=== PATIENT | male | born 1970 | race Hispanic/Latino ===

== ENCOUNTER 2020-07-31 21:25 | Observation (INO) | payer OTHER ==
--- NOTE | 2020-07-31 22:43 | Event Note ---
ED Screening Note Date of service: 07/31/20 Time: 22:42 ED Screening Note: Patient here from [place] on a 1013 complains of left-sided chest pain radiating down left arm This initial assessment/diagnostic orders/clinical plan/treatment(s) is/are subject to change based on patients health status, clinical progression and re- assessment by fellow clinical providers in the ED. Further treatment and workup at subsequent clinical providers discretion. Patient/guardian urged not to elope from the ED as their condition may be serious if not clinically assessed and managed. Initial orders include: Chest pain work-up
--- NOTE | 2020-07-31 23:08 | XRay Report ---
CHEST 2 VIEWS INDICATION: Chest pain and SOB. COMPARISON: 07/31/2020. FINDINGS: Support devices: None. Heart: Within normal limits. Lungs/Pleura: No acute air space or interstitial disease. No significant pleural effusion. IMPRESSION: No acute findings. Signer Name: Sudeep Rg MD Signed: 07/31/2020 11:04 PM Workstation Name: [id number]
[2020-07-31 23:32] LABS: Basophils # (Auto) 0.1 K/mm3 (0.0-0.1); Basophils % (Auto) 1.5 % (0.0-1.8); Eosinophils # (Auto) 0.3 K/mm3 (0.0-0.4); Eosinophils % (Auto) 2.9 % (0.0-4.3); Hematocrit 48.3 % (35.5-45.6); Hemoglobin 16.1 gm/dl (11.8-15.2); Lymphocytes # (Auto) 2.3 K/mm3 (1.2-5.4); Lymphocytes % (Auto) 23.8 % (13.4-35.0); Mean Corpuscular HGB Conc 33 % (32-34); Mean Corpuscular Volume 88 fl (84-94); Monocytes # (Auto) 1.1 K/mm3 (0.0-0.8); Monocytes % (Auto) 11.5 % (0.0-7.3); Platelet Count 323 K/mm3 (140-440); Red Blood Count 5.51 M/mm3 (3.65-5.03); Red Cell Distribution Width 14.3 % (13.2-15.2)
[2020-07-31 23:43] LABS: Alanine Aminotransferase 15 units/L (7-56); Albumin 4.3 g/dL (3.9-5); BUN/Creatinine Ratio 23; Blood Urea Nitrogen 25 mg/dL (9-20); Calcium 9.9 mg/dL (8.4-10.2); Hemolysis Index 19
[2020-08-01] MEDS ORDERED: fentaNYL 100 MCG/2 ML INJ IV ONE (03:14)
[2020-08-01] MEDS ORDERED: NITROGLYCERIN 2% OINT 1 GM TP ONE (03:14)
[2020-08-01] MEDS ORDERED: ONDANSETRON 4 MG/2 ML INJ IV ONE (03:14)
[2020-08-01] MEDS ORDERED: ASPIRIN 325 MG TAB PO ONE (03:14)
--- NOTE | 2020-08-01 03:23 | Emergency Department Report ---
HPI - General Chief Complaint: Chest Pain Time Seen by Provider: 07/31/20 22:42 - HPI HPI: Room 23 The patient is a 50-year-old male present with chief complaint of chest pain. Patient is currently at [place] but states this afternoon at 17: 00 he d eveloped substernal left-sided chest pain described as burning in nature. Patient states the pain was initially intermittent but is now constant. Patient admits to shortness of breath, nausea/vomiting and diaphoresis with this pain. Patient currently gets his chest pain a score of 8/10. Patient admits an occasional cough for the past 2 weeks. 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" - Surgical History Past Surgical History?: Yes Additional Surgical History: Hernia surgery - Family History Family history: no significant - Social History Smoking Status: Current Every Day Smoker (1/3 pack/day) Substance Use Type: Methamphetamines ED Review of Systems ROS: Stated complaint: CHEST PAIN Other details as noted in HPI Constitutional: diaphoresis Eyes: denies: eye pain ENT: denies: throat pain Respiratory: shortness of breath Cardiovascular: chest pain Endocrine: no symptoms reported Gastrointestinal: nausea, vomiting Genitourinary: denies: dysuria Musculoskeletal: denies: back pain Neurological: denies: headache Physical Exam - Physical Exam Vital Signs: Vital Signs 07/31/20 07/31/20 08/01/20 22:17 22:36 02:55 Temperature 97.7 F 98.1 F Pulse Rate 89 78 Respiratory 16 18 Rate Blood Pressure 134/112 Blood Pressure 126/103 118/70 [Right] O2 Sat by Pulse 100 100 Oximetry Physical Exam: GENERAL: The patient is well-developed well-nourished male lying on stretcher not appearing to be in acute distress. [] HEENT: Normocephalic. Atraumatic. Extraocular motions are intact. Patient has moist mucous membranes. NECK: Supple. Trachea midline CHEST/LUNGS: Clear to auscultation. There is no respiratory distress noted. HEART/CARDIOVASCULAR: Regular. There is no tachycardia. There is no gallop rub or murmur. ABDOMEN: Abdomen is soft, nontender. Patient has normal bowel sounds. There is no abdominal distention. SKIN: There is no rash. There is no edema. There is no diaphoresis. NEURO: The patient is awake, alert, and oriented. The patient is cooperative. The patient has no focal neurologic deficits. The patient has normal speech MUSCULOSKELETAL:There is no evidence of acute injury. ED Course Vital Signs 07/31/20 07/31/20 08/01/20 22:17 22:36 02:55 Temperature 97.7 F 98.1 F Pulse Rate 89 78 Respiratory 16 18 Rate Blood Pressure 134/112 Blood Pressure 126/103 118/70 [Right] O2 Sat by Pulse 100 100 Oximetry ED Medical Decision Making - Lab Data Result diagrams: 07/31/20 22:37 07/31/20 22:37 Laboratory Tests 07/31/20 07/31/20 08/01/20 22:37 22:37 01:32 WBC 9.5 RBC 5.51 H Hgb 16.1 H Hct 48.3 H MCV 88 MCH 29 MCHC 33 RDW 14.3 Plt Count 323 Lymph % (Auto) 23.8 [place] % (Auto) 11.5 H Eos % (Auto) 2.9 Baso % (Auto) 1.5 Lymph # (Auto) 2.3 [place] # (Auto) 1.1 H Eos # (Auto) 0.3 Baso # (Auto) 0.1 Seg Neutrophils % 60.3 Seg Neutrophils # 5.8 Sodium 138 Potassium 5.0 Chloride 98.6 Carbon Dioxide 32 H Anion Gap 12 BUN 25 H Creatinine 1.1 Estimated GFR > 60 BUN/Creatinine Ratio 23 Glucose 95 Calcium 9.9 Total Bilirubin 0.20 AST 20 ALT 15 Alkaline Phosphatase 98 Troponin T < 0.010 < 0.010 Total Protein 6.7 Albumin 4.3 Albumin/Globulin Ratio 1.8 - EKG Data -: EKG Interpreted by Me EKG shows normal: sinus rhythm Rate: normal - EKG Data When compared to previous EKG there are: previous EKG unavailable Interpretation: nonspecific ST-T wave dontae (T wave inversion lead aVL) - Radiology Data Radiology results: report reviewed (Chest x-ray), image reviewed (Chest x-ray) interpreted by me: Chest x-ray-no focal infiltrates, no pneumothorax. No foreign body seen [facility] [address] [place] [address] XR ay Report Signed Patient: QUANG DELAROSA MR#: [id number] : 1970 Acct:[id number] Age/Sex: 50 / M ADM Date: 07/31/20 Loc: ED Attending Dr: Ordering Physician: DON BRYSON MD Date of Service: 07/31/20 Procedure(s): XR chest routine 2V Accession Number(s): [id number] cc: DON BRYSON MD Fluoro Time In Minutes: CHEST 2 VIEWS INDICATION: Chest pain and SOB. COMPARISON: 07/31/2020. FINDINGS: Support devices: None. Heart: Within normal limits. Lungs/Pleura: No acute air space or interstitial disease. No significant pleural effusion. IMPRESSION: No acute findings. Signer Name: Sudeep Rg MD Signed: 07/31/2020 11:04 PM Workstation Name: [id number] Transcribed By: ES Dictated By: Sudeep Rg MD Electronically Authenticated By: Sudeep Rg MD Signed Date/Time: 07/31/202303 DD/ 02 TD/TT: Print Cancel - Differential Diagnosis ACS, pericarditis, GERD, bronchitis Critical care attestation.: If time is entered above; I have spent that time in minutes in the direct care of this critically ill patient, excluding procedure time. ED Disposition Clinical Impression: Chest pain Disposition: OP ADMIT IP TO THIS HOSP Is pt being admited?: Yes Does the pt Need Aspirin: Yes Condition: Fair Instructions: Nonspecific Chest Pain, Adult Referrals: PRIMARY CARE, [Primary Care Provider] - 3-5 Days Time of Disposition: 03:23 (Hospitalist paged (Dr Guerra)) Heart Score - HEART Score History: Moderately suspicious EKG: Non-specific Age: 45-65 Risk factors: > 3 risk factors or hx of atherosclerotic disease Troponin: < normal limit HEART Score: 5 - EKG Read Time Time EKG Completed: 22:23 EKG Read Time: 22:24
[2020-08-01] MEDS ORDERED: ONDANSETRON 4 MG/2 ML INJ IV PRN (03:54)
[2020-08-01] MEDS ORDERED: traMADol 50 MG TAB PO PRN (03:54)
[2020-08-01] MEDS ORDERED: NITROGLYCERIN 0.4 MG TAB SUBL SL PRN (03:54)
[2020-08-01] MEDS ORDERED: MAGNESIUM HYDROXIDE (MOM) ORAL LIQD UDC PO PRN (03:54)
[2020-08-01] MEDS ORDERED: ACETAMINOPHEN 325 MG TAB PO PRN ×2 (03:54)
--- NOTE | 2020-08-01 04:05 | History and Physical Report ---
History of Present Illness Date of examination: 08/01/20 Date of admission: 08/01/2020 Chief complaint: Chest Pain History of present illness: 50-year-old white male with known history of seizure disorder, CVA 6 months ago with left-sided deficit from [facility] presents to the emergency room today complaining of chest pain. Chest pain is said to be substernal and radiating to his the left side of his chest. Burning in nature and was initially intermittent and subsequently became constant . He denies any headache or dizziness, denies any diaphoresis. He denies any fever or chills, no cough. Patient had associated nausea and vomiting, no shortness of breath. Patient denies any sick contacts and denies any recent travel. He had COVID-19 in February 2020. He is currently at the [facility] at this time because of suicidal ideations. Work-up so far in the emergency room today including chest x-ray, EKG, troponin levels were negative. Patient has been admitted for chest pain evaluation. Past History Past Medical History: seizures, stroke (6months ago with left sided deficit), other (Covid-19 in 02/2020) Past Surgical History: hernia repair Social history: smoking (Current daily smoker), other (Uses Methamphetamine) Family history: no significant family history Medications and Allergies Allergies Allergy/AdvReac Type Severity Reaction Status Date / Time No Known Allergies Allergy Unverified 07/31/20 22:13 Active Meds: Active Medications Acetaminophen (Acetaminophen 325 Mg Tab) 650 mg PO Q4H PRN PRN Reason: Pain MILD(1-3)/Fever >100.5/WOLF Acetaminophen (Acetaminophen 325 Mg Tab) 650 mg PO Q6H PRN PRN Reason: Pain, Mild (1-3) Aspirin (Aspirin Ec 325 Mg Tab) 325 mg PO QDAY CHUCKY Heparin Sodium (Porcine) (Heparin 5,000 Unit/1 Ml Vial) 5,000 unit SUB-Q Q8HR CHUCKY Magnesium Hydroxide (Magnesium Hydroxide (Mom) Oral Liqd Udc) 30 ml PO Q4H PRN PRN Reason: Constipation Morphine Sulfate (Morphine 4 Mg/1 Ml Inj) 2 mg IV Q5MIN PRN PRN Reason: Chest Pain Nitroglycerin (Nitroglycerin 0.4 Mg Tab Subl) 0.4 mg SL Q5M PRN PRN Reason: Chest Pain Ondansetron HCl (Ondansetron 4 Mg/2 Ml Inj) 4 mg IV Q8H PRN PRN Reason: Nausea And Vomiting Sodium Chloride (Sodium Chloride 0.9% 10 Ml Flush Syringe) 10 ml IV BID CHUCKY Sodium Chloride (Sodium Chloride 0.9% 10 Ml Flush Syringe) 10 ml IV PRN PRN PRN Reason: LINE FLUSH Sodium Chloride (Sodium Chloride 0.9% 10 Ml Flush Syringe) 10 ml IV PRN PRN PRN Reason: LINE FLUSH Tramadol HCl (Tramadol 50 Mg Tab) 50 mg PO Q6H PRN PRN Reason: Pain, Moderate (4-6) Review of Systems Constitutional: no fever, no chills Ears, nose, mouth and throat: no nasal congestion, no sore throat Cardiovascular: chest pain, no palpitations Respiratory: shortness of breath, no cough Gastrointestinal: nausea, vomiting, no abdominal pain, no diarrhea Genitourinary Male: no dysuria, no hematuria, no flank pain, no urinary frequency, no nocturia Musculoskeletal: no neck pain, no low back pain Integumentary: no rash, no pruritis Neurological: no headaches, no confusion Psychiatric: suicidal ideation (Occasionally), depression, no anxiety Endocrine: no polyphagia, no polydipsia, no polyuria, no nocturia Exam - Constitutional Vitals: Temp Pulse Resp BP Pulse Ox 98.1 F 71 16 114/74 100 08/01/20 02:55 08/01/20 03:36 08/01/20 03:31 08/01/20 03:36 08/01/20 02:55 General appearance: Present: no acute distress, well-nourished - EENT Eyes: Present: PERRL, EOM intact, scleral icterus ENT: hearing intact, clear oral mucosa, dentition normal - Neck Neck: Present: supple, normal ROM - Respiratory Respiratory effort: normal Respiratory: bilateral: CTA - Cardiovascular Rhythm: regular Heart Sounds: Present: S1 & S2. Absent: gallop, systolic murmur, diastolic mu rmur, rub, click - Extremities Extremities: no ischemia, pulses intact, pulses symmetrical, No edema, normal temperature, normal color, Full ROM Peripheral Pulses: within normal limits - Abdominal General gastrointestinal: Present: soft, non-tender, non-distended, normal bowel sounds. Absent: mass - Integumentary Integumentary: Present: clear, warm, dry. Absent: rash - Musculoskeletal Musculoskeletal: strength equal bilaterally - Psychiatric Psychiatric: appropriate mood/affect, intact judgment & insight, memory intact, cooperative - Neurologic Neurologic: CNII-XII intact, no focal deficits, moves all extremities HEART Score - HEART Score History: Moderately suspicious EKG: Non-specific Age: 45-65 Risk factors: > 3 risk factors or hx of atherosclerotic disease Troponin: Troponin T < 0.010 ng/mL (0.00-0.029) 08/01/20 01:32 Troponin: < normal limit HEART Score: 5 Results - Labs CBC & Chem 7: 07/31/20 22:37 07/31/20 22:37 Labs: Abnormal lab results 07/31/20 07/31/20 Range/Units 22:37 22:37 RBC 5.51 H (3.65-5.03) M/mm3 Hgb 16.1 H (11.8-15.2) gm/dl Hct 48.3 H (35.5-45.6) % [place] % (Auto) 11.5 H (0.0-7.3) % [place] # (Auto) 1.1 H (0.0-0.8) K/mm3 Carbon Dioxide 32 H (22-30) mmol/L BUN 25 H (9-20) mg/dL Assessment and Plan - Patient Problems (1) Chest pain Current Visit: Yes Status: Acute Plan to address problem: Patient admitted to telemetry. We will check serial cardiac enzymes Patient placed on aspirin, sublingual nitroglycerin and IV morphine as needed for chest pain. We will place consult to cardiology for evaluation. (2) Seizure disorder Current Visit: Yes Status: Acute Plan to address problem: Patient placed on seizure precautions. We will place on routine home medications once reconciled. (3) Suicidal ideations Current Visit: Yes Status: Acute Plan to address problem: Patient has had intermittent suicidal ideations and currently at the [facility]. We will place consult to mental health for follow-up during this admission. (4) DVT prophylaxis Current Visit: Yes Status: Acute Plan to address problem: Patient placed on subcutaneous heparin. (5) Full code status Current Visit: Yes Status: Acute Plan to address problem: Patient is full code.
[2020-08-01 06:43] LABS: Basophils # (Auto) 0.2 K/mm3 (0.0-0.1); Basophils % (Auto) 2.1 % (0.0-1.8); Eosinophils # (Auto) 0.3 K/mm3 (0.0-0.4); Eosinophils % (Auto) 3.4 % (0.0-4.3); Hematocrit 44.6 % (35.5-45.6); Hemoglobin 14.8 gm/dl (11.8-15.2); Lymphocytes # (Auto) 2.2 K/mm3 (1.2-5.4); Lymphocytes % (Auto) 26.2 % (13.4-35.0); Mean Corpuscular HGB Conc 33 % (32-34); Mean Corpuscular Volume 88 fl (84-94); Monocytes # (Auto) 0.9 K/mm3 (0.0-0.8); Monocytes % (Auto) 10.8 % (0.0-7.3); Platelet Count 243 K/mm3 (140-440); Red Blood Count 5.06 M/mm3 (3.65-5.03); Red Cell Distribution Width 14.1 % (13.2-15.2)
[2020-08-01 07:38] LABS: BUN/Creatinine Ratio 24; Blood Urea Nitrogen 24 mg/dL (9-20); Calcium 9.2 mg/dL (8.4-10.2); Chol/HDL Ratio 2.67 %; HDL Cholesterol 52 mg/dL (40-59); Hemolysis Index 5; LDL Cholesterol,Direct 71 mg/dL (50-130)
[2020-08-01] MEDS: HEPARIN 5,000 UNIT/1 ML VIAL SUB-Q SCH ×3 (07:48→21:21)
[2020-08-01] MEDS: MORPHINE 4 MG/1 ML INJ IV PRN ×4 (09:12→23:15)
--- NOTE | 2020-08-01 11:27 | Progress Note ---
Assessment and Plan Assessment and plan: Assessment and Plan - Patient Problems Chest pain Current Visit: Yes Status: Acute Plan to address problem: Patient admitted to telemetry. Serial troponins Start aspirin, sublingual nitroglycerin and IV morphine as needed for chest pain. Cardiology consulted Stress test in the morning, patient n.p.o. after midnight Seizure disorder Current Visit: Yes Status: Acute Plan to address problem: Patient placed on seizure precautions. Patient denies any history of seizure disorder however this needs to be reconciled Suicidal ideations Current Visit: Yes Status: Acute Plan to address problem: Patient has had intermittent suicidal ideations and currently at the [facility]. Psychiatry consulted History of acute CVA? Unverified, patient states that he was admitted to the hospital in [place] for stroke Patient does not remember any medications he was placed on (statin, Plavix, aspirin?) CODE STATUS: Full DVT prophylaxis: Heparin Disposition: Stress test in the morning, if negative, patient to be discharged back to [facility]. History Interval history: 08/01/2020: Patient seen, no acute distress, states that he has mild left-sided chest pain not radiating to his neck or arm. Patient denies any suicidal ideation at this time. Hospitalist Physical - Constitutional Vitals: Temp Pulse Resp BP Pulse Ox 97.5 F L 70 17 111/77 96 08/01/20 08:16 08/01/20 04:49 08/01/20 04:49 08/01/20 08:16 08/01/20 04:49 General appearance: Present: no acute distress, well-nourished HEART Score - HEART Score EKG: Non-specific Age: 45-65 Risk factors: > 3 risk factors or hx of atherosclerotic disease Troponin: Troponin T < 0.010 ng/mL (0.00-0.029) 08/01/20 05:44 Troponin: < normal limit Results - Labs CBC & Chem 7: 08/01/20 05:44 08/01/20 05:44 Labs: Laboratory Last Values WBC 8.5 K/mm3 (4.5-11.0) 08/01/20 05:44 RBC 5.06 M/mm3 (3.65-5.03) H 08/01/20 05:44 Hgb 14.8 gm/dl (11.8-15.2) 08/01/20 05:44 Hct 44.6 % (35.5-45.6) 08/01/20 05:44 MCV 88 fl (84-94) 08/01/20 05:44 MCH 29 pg (28-32) 08/01/20 05:44 MCHC 33 % (32-34) 08/01/20 05:44 RDW 14.1 % (13.2-15.2) 08/01/20 05:44 Plt Count 243 K/mm3 (140-440) 08/01/20 05:44 Lymph % (Auto) 26.2 % (13.4-35.0) 08/01/20 05:44 [place] % (Auto) 10.8 % (0.0-7.3) H 08/01/20 05:44 Eos % (Auto) 3.4 % (0.0-4.3) 08/01/20 05:44 Baso % (Auto) 2.1 % (0.0-1.8) H 08/01/20 05:44 Lymph # (Auto) 2.2 K/mm3 (1.2-5.4) 08/01/20 05:44 [place] # (Auto) 0.9 K/mm3 (0.0-0.8) H 08/01/20 05:44 Eos # (Auto) 0.3 K/mm3 (0.0-0.4) 08/01/20 05:44 Baso # (Auto) 0.2 K/mm3 (0.0-0.1) H 08/01/20 05:44 Seg Neutrophils % 57.5 % (40.0-70.0) 08/01/20 05:44 Seg Neutrophils # 4.9 K/mm3 (1.8-7.7) 08/01/20 05:44 Sodium 135 mmol/L (137-145) L 08/01/20 05:44 Potassium 4.1 mmol/L (3.6-5.0) 08/01/20 05:44 Chloride 99.2 mmol/L (98-107) 08/01/20 05:44 Carbon Dioxide 28 mmol/L (22-30) 08/01/20 05:44 Anion Gap 12 mmol/L 08/01/20 05:44 BUN 24 mg/dL (9-20) H 08/01/20 05:44 Creatinine 1.0 mg/dL (0.8-1.3) 08/01/20 05:44 Estimated GFR > 60 ml/min 08/01/20 05:44 BUN/Creatinine Ratio 24 % 08/01/20 05:44 Glucose 86 mg/dL (75-100) 08/01/20 05:44 Calcium 9.2 mg/dL (8.4-10.2) 08/01/20 05:44 Total Bilirubin 0.20 mg/dL (0.1-1.2) 07/31/20 22:37 AST 20 units/L (5-40) 07/31/20 22:37 ALT 15 units/L (7-56) 07/31/20 22:37 Alkaline Phosphatase 98 units/L (35-129) 07/31/20 22:37 Troponin T < 0.010 ng/mL (0.00-0.029) 08/01/20 05:44 Total Protein 6.7 g/dL (6.3-8.2) 07/31/20 22:37 Albumin 4.3 g/dL (3.9-5) 07/31/20 22:37 Albumin/Globulin Ratio 1.8 % 07/31/20 22:37 Triglycerides 99 mg/dL (2-149) 08/01/20 05:44 Cholesterol 139 mg/dL (50-199) 08/01/20 05:44 LDL Cholesterol Direct 71 mg/dL (50-130) 08/01/20 05:44 HDL Cholesterol 52 mg/dL (40-59) 08/01/20 05:44 Cholesterol/HDL Ratio 2.67 % 08/01/20 05:44 [place]/IV: Voiding Method Toilet Active Medications - Current Medications Current Medications: Generic Name Dose Route Start Last Admin Trade Name Freq PRN Reason Stop Dose Admin Acetaminophen 650 mg 08/01/20 03:54 Acetaminophen 325 Mg Tab PO Q4H PRN Pain MILD(1-3)/Fever >100.5/WOLF Aspirin 325 mg 08/02/20 10:00 Aspirin Ec 325 Mg Tab PO QDAY CHUCKY Heparin Sodium (Porcine) 5,000 unit 08/01/20 06:00 08/01/20 07:48 Heparin 5,000 Unit/1 Ml Vial SUB-Q Not Given Q8HR CHUCKY Magnesium Hydroxide 30 ml 08/01/20 03:54 Magnesium Hydroxide (Mom) Oral Liqd Udc PO Q4H PRN Constipation Morphine Sulfate 2 mg 08/01/20 03:54 08/01/20 09:12 Morphine 4 Mg/1 Ml Inj IV 2 mg Q5MIN PRN Administration Chest Pain Nitroglycerin 0.4 mg 08/01/20 03:54 Nitroglycerin 0.4 Mg Tab Subl SL Q5M PRN Chest Pain Ondansetron HCl 4 mg 08/01/20 03:54 Ondansetron 4 Mg/2 Ml Inj IV Q8H PRN Nausea And Vomiting Sodium Chloride 10 ml 08/01/20 10:00 08/01/20 09:01 Sodium Chloride 0.9% 10 Ml Flush Syringe IV 10 ml BID CHUCKY Administration Sodium Chloride 10 ml 08/01/20 03:54 Sodium Chloride 0.9% 10 Ml Flush Syringe IV PRN PRN LINE FLUSH Tramadol HCl 50 mg 08/01/20 03:54 Tramadol 50 Mg Tab PO Q6H PRN Pain, Moderate (4-6)
--- NOTE | 2020-08-01 13:59 | Consultation ---
History of Present Illness Consult date: 08/01/20 Consult reason: chest pain History of present illness: Patient is a 50-year-old man currently a resident in [facility] for depression and suicidal ideation. He was brought to the emergency room for complaints of chest pain. Chest pain is poorly characterized, nonexertional with no anginal characteristics. ECG in the emergency room was normal sinus rhythm, normal ECG. Chest x-ray was normal size cardiac silhouette, hyperlucent lung post with no infiltrates or edema. Serial troponin levels were normal. Cardiology consultation was requested for chest pain assessment. Past History Past Medical History: seizures, stroke (6months ago with left sided deficit), other (Covid-19 in 02/2020) Past Surgical History: hernia repair Social history: smoking (Current daily smoker), other (Uses Methamphetamine) Family history: no significant family history Medications and Allergies Allergies Allergy/AdvReac Type Severity Reaction Status Date / Time No Known Allergies Allergy Verified 08/01/20 04:06 Active Meds: Active Medications Acetaminophen (Acetaminophen 325 Mg Tab) 650 mg PO Q4H PRN PRN Reason: Pain MILD(1-3)/Fever >100.5/WOLF Aspirin (Aspirin Ec 325 Mg Tab) 325 mg PO QDAY [facility] Heparin Sodium (Porcine) (Heparin 5,000 Unit/1 Ml Vial) 5,000 unit SUB-Q Q8HR [facility] Last Admin: 08/01/20 07:48 Dose: Not Given Documented by: Magnesium Hydroxide (Magnesium Hydroxide (Mom) Oral Liqd Udc) 30 ml PO Q4H PRN PRN Reason: Constipation Morphine Sulfate (Morphine 4 Mg/1 Ml Inj) 2 mg IV Q5MIN PRN PRN Reason: Chest Pain Last Admin: 08/01/20 09:12 Dose: 2 mg Documented by: Nitroglycerin (Nitroglycerin 0.4 Mg Tab Subl) 0.4 mg SL Q5M PRN PRN Reason: Chest Pain Ondansetron HCl (Ondansetron 4 Mg/2 Ml Inj) 4 mg IV Q8H PRN PRN Reason: Nausea And Vomiting Sodium Chloride (Sodium Chloride 0.9% 10 Ml Flush Syringe) 10 ml IV BID [facility] Last Admin: 08/01/20 09:01 Dose: 10 ml Documented by: Sodium Chloride (Sodium Chloride 0.9% 10 Ml Flush Syringe) 10 ml IV PRN PRN PRN Reason: LINE FLUSH Tramadol HCl (Tramadol 50 Mg Tab) 50 mg PO Q6H PRN PRN Reason: Pain, Moderate (4-6) Review of Systems Cardiovascular: chest pain, no orthopnea, no palpitations, no rapid/irregular heart beat, no edema, no syncope, no lightheadedness, no shortness of breath Physical Examination Vital Signs Temp Pulse Resp BP Pulse Ox 97.7 F 89 16 134/112 100 07/31/20 22:17 07/31/20 22:17 07/31/20 22:17 07/31/20 22:17 07/31/20 22:17 General appearance: no acute distress HEENT: Positive: PERRL Neck: Positive: neck supple Cardiac: Positive: Reg Rate and Rhythm Lungs: Positive: clear to auscultation Neuro: Positive: Grossly Intact Abdomen: Positive: Soft Male genitourinary: Positive: deferred Skin: Positive: Clear Extremities: Absent: edema Results 08/01/20 05:44 08/01/20 05:44 Cardiac Enzymes 07/31/20 Range/Units 22:37 AST 20 (5-40) units/L Lipids 08/01/20 Range/Units 05:44 Triglycerides 99 (2-149) mg/dL Cholesterol 139 (50-199) mg/dL HDL Cholesterol 52 (40-59) mg/dL Cholesterol/HDL Ratio 2.67 % CBC 07/31/20 08/01/20 Range/Units 22:37 05:44 WBC 9.5 8.5 (4.5-11.0) K/mm3 RBC 5.51 H 5.06 H (3.65-5.03) M/mm3 Hgb 16.1 H 14.8 (11.8-15.2) gm/dl Hct 48.3 H 44.6 (35.5-45.6) % Plt Count 323 243 (140-440) K/mm3 Lymph # (Auto) 2.3 2.2 (1.2-5.4) K/mm3 [place] # (Auto) 1.1 H 0.9 H (0.0-0.8) K/mm3 Eos # (Auto) 0.3 0.3 (0.0-0.4) K/mm3 Baso # (Auto) 0.1 0.2 H (0.0-0.1) K/mm3 Comprehensive Metabolic Panel 07/31/20 08/01/20 Range/Units 22:37 05:44 Sodium 138 135 L (137-145) mmol/L Potassium 5.0 4.1 (3.6-5.0) mmol/L Chloride 98.6 99.2 (98-107) mmol/L Carbon Dioxide 32 H 28 (22-30) mmol/L BUN 25 H 24 H (9-20) mg/dL Creatinine 1.1 1.0 (0.8-1.3) mg/dL Glucose 95 86 (75-100) mg/dL Calcium 9.9 9.2 (8.4-10.2) mg/dL AST 20 (5-40) units/L ALT 15 (7-56) units/L Alkaline Phosphatase 98 (35-129) units/L Total Protein 6.7 (6.3-8.2) g/dL Albumin 4.3 (3.9-5) g/dL EKG interpretations - Telemetry EKG Rhythm: Sinus Rhythm Assessment and Plan - Patient Problems (1) Atypical chest pain Current Visit: Yes Status: Acute Plan to address problem: Chest pain is atypical, with no anginal characteristics. ECG and serial troponin levels are normal. A thallium stress test has been ordered for cardiac chest pain assessment.
[2020-08-02] MEDS: HEPARIN 5,000 UNIT/1 ML VIAL SUB-Q SCH ×3 (06:39→21:33)
[2020-08-02 06:40] LABS: Basophils # (Auto) 0.1 K/mm3 (0.0-0.1); Basophils % (Auto) 1.9 % (0.0-1.8); Eosinophils # (Auto) 0.3 K/mm3 (0.0-0.4); Eosinophils % (Auto) 4.8 % (0.0-4.3); Hematocrit 45.2 % (35.5-45.6); Lymphocytes # (Auto) 1.9 K/mm3 (1.2-5.4); Lymphocytes % (Auto) 26.2 % (13.4-35.0); Mean Corpuscular HGB Conc 33 % (32-34); Mean Corpuscular Volume 88 fl (84-94); Monocytes # (Auto) 0.8 K/mm3 (0.0-0.8); Monocytes % (Auto) 10.4 % (0.0-7.3); Platelet Count 232 K/mm3 (140-440); Red Blood Count 5.15 M/mm3 (3.65-5.03); Red Cell Distribution Width 14.2 % (13.2-15.2)
[2020-08-02 06:46] LABS: INR 0.97 (0.87-1.13)
[2020-08-02 06:55] LABS: BUN/Creatinine Ratio 18; Blood Urea Nitrogen 16 mg/dL (9-20); Calcium 9.1 mg/dL (8.4-10.2); Hemolysis Index 4
[2020-08-02] MEDS ORDERED: REGADENOSON 0.4 MG/5 ML INJ IV ONE (08:43)
--- NOTE | 2020-08-02 10:14 | Event Note ---
Date: 08/02/20 Patient is scheduled for Lexiscan thallium stress test today for atypical chest pain. Low suspicion for cardiac ischemia as etiology of current chest pain.
--- NOTE | 2020-08-02 11:12 | Electrocardiograph Report ---
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
--- NOTE | 2020-08-02 11:16 | Electrocardiograph Report ---
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
--- NOTE | 2020-08-02 13:27 | Nuclear Medicine Report ---
APPROVED REPORT Exam: Nuclear Stress Test Indication: Chest pain Ht: 5 ft 11 in Wt: 128 lbs BSA: 1.74 m2 HR: 67 bpm BP: 120/81 mmHg BMI: 17.85 Rhythm: NSR Stress Test Details Stress Test: Pharmacologic stress testing performed using 0.4 mg of regadenoson per 5 mL given IV over 10 seconds. Reason for pharmacologic stress test: physical limitation. HR Resting HR: 67 bpmMax Heart Rate (APMHR): 168 bpm Max HR Achieved: 114 bpmTarget HR (85% APMHR): 142 bpm % of APMHR: 67 Recovery HR: 107 bpm BP Resting BP: 120/81 mmHg Max BP: 130/83 mmHg Recovery BP: 113/73 mmHg ECG Resting ECG: Sinus Rhythm Stress ECG: Sinus Rhythm ST Change: None Arrhythmia: None Recovery ECG: Sinus Rhythm Recovery ST Change: None Recovery Arrhythmia: None Clinical Reason for Termination: Completed protocol Stress Symptoms: Nausea Stress ECG Conclusion There was no chest pain, no ST changes with pharmacologic stress, thallium perfusion images are pending for final test interpretation. NM EXAM: Myocardial Perfusion REST/STRESS Imaging Protocol: Rest Tc-99m/Stress Tc-99m 1 day Resting Data Rest SPECT myocardial perfusion imaging was performed in supine position 45 minutes following the intravenous injection of 10 mCi of Tc-99m Myoview. Time of rest injection: 0945 Pharmacologic Stress Pharmacologic stress test was performed by injecting Regadenoson 0.4 mg IV push followed by the intravenous injection of 28 mCi of Tc-99m Myoview. Time of stress injection: 1038 Gated Stress SPECT was performed 30 minutes after stress injection. The images were gated to evaluate regional wall motion and calculate left ventricular ejection fraction. Study Quality Study: excellent Lung Uptake: Normal Study Data TID = 1.20. Perfusion Wall Motion The rest and stress images show normal left ventricular wall motion. Nuclear Conclusion ECG Findings: negative for ischemia Clinical Findings: negative for ischemia Nuclear Findings: negative for ischemia Left Ventricular Function: normal Risk Study: low The rest and stress images were normal, left ventricular systolic function is normal with ejection fraction 68%. Normal study. Conclusion There was no chest pain, no ST changes with pharmacologic stress, thallium perfusion images are pending for final test interpretation.
--- NOTE | 2020-08-02 15:03 | Progress Note ---
Assessment and Plan Assessment and plan: Assessment and Plan 50-year-old male coming from psychiatric inpatient facility who presents with acute chest pain. Chest pain Current Visit: Yes Status: Acute Plan to address problem: Patient admitted to telemetry. Serial troponins normal Start aspirin, sublingual nitroglycerin and IV morphine as needed for chest pain. Cardiology consulted Cardiac stress test and echocardiogram normal, no ischemia seen Cardiology is cleared patient for discharge Seizure disorder Current Visit: Yes Status: Acute Plan to address problem: Patient placed on seizure precautions. Suicidal ideations Current Visit: Yes Status: Acute Plan to address problem: Patient has had intermittent suicidal ideations and currently at the [facility]. Psychiatry consulted for clearance back to [facility] History of acute CVA? Unverified, patient states that he was admitted to the hospital in [place] for stroke Patient does not remember any medications he was placed on (statin, Plavix, aspirin?) Patient placed on aspirin CODE STATUS: Full DVT prophylaxis: Heparin Disposition: Patient is medically cleared for discharge back to [facility], pending psychiatric evaluation History Interval history: 08/01/2020: Patient seen, no acute distress, states that he has mild left-sided chest pain not radiating to his neck or arm. Patient denies any suicidal ideation at this time. 08/02/2020: Patient seen and examined, chest pain is minimal. Patient went for echocardiogram and stress test today. Hospitalist Physical - Physical exam Narrative exam: General appearance: no acute distress, well-nourished EENT: PERRL, EOM intact, hearing intact, clear oral mucosa, dentition normal Neck: Present: supple, normal ROM Respiratory: bilateral CTA, negative: rales, rhonchi, wheezing Cardiovascular: Regular rate/rhythm, Normal S1 & S2. No gallop, rub Extremities: no ischemia, No edema, normal temperature, normal color, Full ROM Abdominal: soft, non-tender, non-distended, normal bowel sounds Integumentary: Present: clear, warm, dry Psychiatric: appropriate mood/affect, intact judgment & insight Neurologic: CNII-XII intact, moves all extremities - Constitutional Vitals: Temp Pulse Resp BP Pulse Ox 97.8 F 83 16 130/83 98 08/02/20 05:01 08/02/20 05:01 08/02/20 05:01 08/02/20 10:44 08/02/20 05:01 General appearance: Present: no acute distress HEART Score - HEART Score EKG: Non-specific Age: 45-65 Risk factors: > 3 risk factors or hx of atherosclerotic disease Troponin: Troponin T < 0.010 ng/mL (0.00-0.029) 08/01/20 14:09 Troponin: < normal limit Results - Labs CBC & Chem 7: 08/02/20 04:42 08/02/20 04:42 Labs: Laboratory Last Values WBC 7.2 K/mm3 (4.5-11.0) 08/02/20 04:42 RBC 5.15 M/mm3 (3.65-5.03) H 08/02/20 04:42 Hgb 15.0 gm/dl (11.8-15.2) 08/02/20 04:42 Hct 45.2 % (35.5-45.6) 08/02/20 04:42 MCV 88 fl (84-94) 08/02/20 04:42 MCH 29 pg (28-32) 08/02/20 04:42 MCHC 33 % (32-34) 08/02/20 04:42 RDW 14.2 % (13.2-15.2) 08/02/20 04:42 Plt Count 232 K/mm3 (140-440) 08/02/20 04:42 Lymph % (Auto) 26.2 % (13.4-35.0) 08/02/20 04:42 [place] % (Auto) 10.4 % (0.0-7.3) H 08/02/20 04:42 Eos % (Auto) 4.8 % (0.0-4.3) H 08/02/20 04:42 Baso % (Auto) 1.9 % (0.0-1.8) H 08/02/20 04:42 Lymph # (Auto) 1.9 K/mm3 (1.2-5.4) 08/02/20 04:42 [place] # (Auto) 0.8 K/mm3 (0.0-0.8) 08/02/20 04:42 Eos # (Auto) 0.3 K/mm3 (0.0-0.4) 08/02/20 04:42 Baso # (Auto) 0.1 K/mm3 (0.0-0.1) 08/02/20 04:42 Seg Neutrophils % 56.7 % (40.0-70.0) 08/02/20 04:42 Seg Neutrophils # 4.1 K/mm3 (1.8-7.7) 08/02/20 04:42 PT 12.7 Sec. (12.2-14.9) 08/02/20 04:42 INR 0.97 (0.87-1.13) 08/02/20 04:42 Sodium 137 mmol/L (137-145) 08/02/20 04:42 Potassium 4.4 mmol/L (3.6-5.0) 08/02/20 04:42 Chloride 98.8 mmol/L (98-107) 08/02/20 04:42 Carbon Dioxide 28 mmol/L (22-30) 08/02/20 04:42 Anion Gap 15 mmol/L 08/02/20 04:42 BUN 16 mg/dL (9-20) 08/02/20 04:42 Creatinine 0.9 mg/dL (0.8-1.3) 08/02/20 04:42 Estimated GFR > 60 ml/min 08/02/20 04:42 BUN/Creatinine Ratio 18 % 08/02/20 04:42 Glucose 90 mg/dL (75-100) 08/02/20 04:42 Calcium 9.1 mg/dL (8.4-10.2) 08/02/20 04:42 Total Bilirubin 0.20 mg/dL (0.1-1.2) 07/31/20 22:37 AST 20 units/L (5-40) 07/31/20 22:37 ALT 15 units/L (7-56) 07/31/20 22:37 Alkaline Phosphatase 98 units/L (35-129) 07/31/20 22:37 Troponin T < 0.010 ng/mL (0.00-0.029) 08/01/20 14:09 Total Protein 6.7 g/dL (6.3-8.2) 07/31/20 22:37 Albumin 4.3 g/dL (3.9-5) 07/31/20 22:37 Albumin/Globulin Ratio 1.8 % 07/31/20 22:37 Triglycerides 99 mg/dL (2-149) 08/01/20 05:44 Cholesterol 139 mg/dL (50-199) 08/01/20 05:44 LDL Cholesterol Direct 71 mg/dL (50-130) 08/01/20 05:44 HDL Cholesterol 52 mg/dL (40-59) 08/01/20 05:44 Cholesterol/HDL Ratio 2.67 % 08/01/20 05:44 Oglesby/IV: Voiding Method Toilet Active Medications - Current Medications Current Medications: Generic Name Dose Route Start Last Admin Trade Name Freq PRN Reason Stop Dose Admin Acetaminophen 650 mg 08/01/20 03:54 Acetaminophen 325 Mg Tab PO Q4H PRN Pain MILD(1-3)/Fever >100.5/WOLF Aspirin 325 mg 08/02/20 10:00 Aspirin Ec 325 Mg Tab PO QDAY CHUCKY Heparin Sodium (Porcine) 5,000 unit 08/01/20 06:00 08/02/20 06:39 Heparin 5,000 Unit/1 Ml Vial SUB-Q 5,000 unit Q8HR CHUCKY Administration Magnesium Hydroxide 30 ml 08/01/20 03:54 Magnesium Hydroxide (Mom) Oral Liqd Udc PO Q4H PRN Constipation Morphine Sulfate 2 mg 08/01/20 03:54 08/01/20 23:15 Morphine 4 Mg/1 Ml Inj IV 2 mg Q5MIN PRN Administration Chest Pain Nitroglycerin 0.4 mg 08/01/20 03:54 08/01/20 16:20 Nitroglycerin 0.4 Mg Tab Subl SL 0.4 mg Q5M PRN Administration Chest Pain Ondansetron HCl 4 mg 08/01/20 03:54 08/02/20 10:46 Ondansetron 4 Mg/2 Ml Inj IV 4 mg Q8H PRN Administration Nausea And Vomiting Sodium Chloride 10 ml 08/01/20 10:00 08/01/20 23:16 Sodium Chloride 0.9% 10 Ml Flush Syringe IV 10 ml BID CHUCKY Administration Sodium Chloride 10 ml 08/01/20 03:54 Sodium Chloride 0.9% 10 Ml Flush Syringe IV PRN PRN LINE FLUSH Tramadol HCl 50 mg 08/01/20 03:54 Tramadol 50 Mg Tab PO Q6H PRN Pain, Moderate (4-6) Nutrition/Malnutrition Assess - Dietary Evaluation Nutrition/Malnutrition Findings: Nutrition Notes Start: 08/02/20 11:50 Freq: Status: Active Protocol: Document 08/02/20 11:50 KYLIE (Rec: 08/02/20 11:52 KYLIE [id number]) Nutrition Notes Need for Assessment generated from: Low BMI Initial or Follow up Brief Note Other Pertinent Diagnosis chest pain, seizure disorder, suicidal ideations Current Diet NPO Subjective/Other Information Screen for low BMI. Pt NPO and out of room for stress test at time of visit. Nutrition Intervention Follow-Up By: 08/03/20 Additional Comments FU for low BMI
--- NOTE | 2020-08-02 15:05 | Discharge Summary ---
Providers - Providers Date of Admission: 08/01/20 03:40 Date of discharge: 08/02/20 Attending physician: OLAF SCHUMACHER MD 08/01/20 Consult to Cardiac Rehabilitation [CONS] Routine Reason For Exam: Phase I 08/01/20 03:54 Consult to Cardiology [CONS] Routine Consulting Provider: LUPE RAO Reason For Exam: chest pain 08/01/20 04:20 Consult to Mental Health [CONS] Routine Reason For Exam: Suicidal ideations Primary care physician: SIGNS AND DISPLAYS SALESPERSON Hospitalization Reason for admission: chest pain Condition: Stable Hospital course: Assessment and Plan 50-year-old male coming from psychiatric inpatient facility who presents with acute chest pain. Chest pain Current Visit: Yes Status: Acute Plan to address problem: Patient admitted to telemetry. Serial troponins normal Start aspirin, sublingual nitroglycerin and IV morphine as needed for chest pain. Cardiology consulted Cardiac stress test and echocardiogram normal, no ischemia seen Cardiology is cleared patient for discharge Seizure disorder Current Visit: Yes Status: Acute Plan to address problem: Patient placed on seizure precautions. Suicidal ideations Current Visit: Yes Status: Acute Plan to address problem: Patient has had intermittent suicidal ideations and currently at the [facility]. Psychiatry consulted for clearance back to [facility] History of acute CVA? Unverified, patient states that he was admitted to the hospital in [place] for stroke Patient does not remember any medications he was placed on (statin, Plavix, aspirin?) Patient placed on aspirin CODE STATUS: Full DVT prophylaxis: Heparin Disposition: Patient is medically cleared for discharge back to [facility], pending psychiatric evaluation History Interval history: 08/01/2020: Patient seen, no acute distress, states that he has mild left-sided chest pain not radiating to his neck or arm. Patient denies any suicidal ideation at this time. 08/02/2020: Patient seen and examined, chest pain is minimal. Patient went for echocardiogram and stress test today. Disposition: [id number] PSY HOSP/PSY UNIT Final Discharge Diagnosis (Prints w/discharge instructions): atypical chest pain. seizure disorder. CVA hx. Suicidal ideation Core Measure Documentation - Palliative Care Palliative Care/ Comfort Measures: Not Applicable - Core Measures Any of the following diagnoses?: none Exam - Physical Exam Narrative exam: General appearance: no acute distress, well-nourished EENT: PERRL, EOM intact, hearing intact, clear oral mucosa, dentition normal Neck: Present: supple, normal ROM Respiratory: bilateral CTA, negative: rales, rhonchi, wheezing Cardiovascular: Regular rate/rhythm, Normal S1 & S2. No gallop, rub Extremities: no ischemia, No edema, normal temperature, normal color, Full ROM Abdominal: soft, non-tender, non-distended, normal bowel sounds Integumentary: Present: clear, warm, dry Psychiatric: appropriate mood/affect, intact judgment & insight Neurologic: CNII-XII intact, moves all extremities - Constitutional Vitals: Temp Pulse Resp BP Pulse Ox 97.8 F 83 16 130/83 98 08/02/20 05:01 08/02/20 05:01 08/02/20 05:01 08/02/20 10:44 08/02/20 05:01 Plan Activity: no restrictions Diet: regular Follow up with: PRIMARY CARE, [Primary Care Provider] - 3-5 Days
[2020-08-02] MEDS: ASPIRIN EC 325 MG TAB PO SCH (15:15)
[2020-08-03] MEDS: HEPARIN 5,000 UNIT/1 ML VIAL SUB-Q SCH (06:53)
[2020-08-03 09:15] VITALS: BP 120/69
[2020-08-03] MEDS: ASPIRIN EC 325 MG TAB PO SCH (09:46)
--- NOTE | 2020-08-03 10:12 | Progress Note ---
Assessment and Plan Assessment and plan: Chest pain. Cardiac stress test and echocardiogram normal, no ischemia seen Cardiology is cleared patient for discharge Seizure disorder. Continue seizure precautions. Suicidal ideations. Patient has had intermittent suicidal ideations and currently at the [facility]. Psychiatry consulted [facility] 08/01/2020: Patient seen, no acute distress, states that he has mild left-sided chest pain not radiating to his neck or arm. Patient denies any suicidal ideat ion at this time. 08/02/2020: Patient seen and examined, chest pain is minimal. Patient went for echocardiogram and stress test today. 08/03/2020: Await psychiatry recommendations for discharge planning. Continue 1013. History Interval history: No new issues overnight. Hospitalist Physical - Constitutional Vitals: Temp Pulse Resp BP Pulse Ox 97.7 F 99 H 22 120/69 97 08/03/20 09:11 08/03/20 09:11 08/03/20 09:11 08/03/20 09:11 08/03/20 09:11 General appearance: Present: no acute distress - EENT Eyes: Present: PERRL, EOM intact ENT: hearing intact, clear oral mucosa, dentition normal - Neck Neck: Present: supple, normal ROM - Respiratory Respiratory effort: normal Respiratory: bilateral: CTA - Cardiovascular Rhythm: regular Heart Sounds: Present: S1 & S2. Absent: gallop, rub - Extremities Extremities: no ischemia, No edema, Full ROM - Abdominal General gastrointestinal: soft, non-tender, non-distended, normal bowel sounds - Integumentary Integumentary: Present: clear, warm, dry - Neurologic Neurologic: CNII-XII intact, moves all extremities HEART Score - HEART Score EKG: Non-specific Age: 45-65 Risk factors: > 3 risk factors or hx of atherosclerotic disease Troponin: Troponin T < 0.010 ng/mL (0.00-0.029) 08/01/20 14:09 Troponin: < normal limit Results - Labs CBC & Chem 7: 08/02/20 04:42 08/02/20 04:42 Labs: Laboratory Last Values WBC 7.2 K/mm3 (4.5-11.0) 08/02/20 04:42 RBC 5.15 M/mm3 (3.65-5.03) H 08/02/20 04:42 Hgb 15.0 gm/dl (11.8-15.2) 08/02/20 04:42 Hct 45.2 % (35.5-45.6) 08/02/20 04:42 MCV 88 fl (84-94) 08/02/20 04:42 MCH 29 pg (28-32) 08/02/20 04:42 MCHC 33 % (32-34) 08/02/20 04:42 RDW 14.2 % (13.2-15.2) 08/02/20 04:42 Plt Count 232 K/mm3 (140-440) 08/02/20 04:42 Lymph % (Auto) 26.2 % (13.4-35.0) 08/02/20 04:42 [place] % (Auto) 10.4 % (0.0-7.3) H 08/02/20 04:42 Eos % (Auto) 4.8 % (0.0-4.3) H 08/02/20 04:42 Baso % (Auto) 1.9 % (0.0-1.8) H 08/02/20 04:42 Lymph # (Auto) 1.9 K/mm3 (1.2-5.4) 08/02/20 04:42 [place] # (Auto) 0.8 K/mm3 (0.0-0.8) 08/02/20 04:42 Eos # (Auto) 0.3 K/mm3 (0.0-0.4) 08/02/20 04:42 Baso # (Auto) 0.1 K/mm3 (0.0-0.1) 08/02/20 04:42 Seg Neutrophils % 56.7 % (40.0-70.0) 08/02/20 04:42 Seg Neutrophils # 4.1 K/mm3 (1.8-7.7) 08/02/20 04:42 PT 12.7 Sec. (12.2-14.9) 08/02/20 04:42 INR 0.97 (0.87-1.13) 08/02/20 04:42 Sodium 137 mmol/L (137-145) 08/02/20 04:42 Potassium 4.4 mmol/L (3.6-5.0) 08/02/20 04:42 Chloride 98.8 mmol/L (98-107) 08/02/20 04:42 Carbon Dioxide 28 mmol/L (22-30) 08/02/20 04:42 Anion Gap 15 mmol/L 08/02/20 04:42 BUN 16 mg/dL (9-20) 08/02/20 04:42 Creatinine 0.9 mg/dL (0.8-1.3) 08/02/20 04:42 Estimated GFR > 60 ml/min 08/02/20 04:42 BUN/Creatinine Ratio 18 % 08/02/20 04:42 Glucose 90 mg/dL (75-100) 08/02/20 04:42 Calcium 9.1 mg/dL (8.4-10.2) 08/02/20 04:42 Total Bilirubin 0.20 mg/dL (0.1-1.2) 07/31/20 22:37 AST 20 units/L (5-40) 07/31/20 22:37 ALT 15 units/L (7-56) 07/31/20 22:37 Alkaline Phosphatase 98 units/L (35-129) 07/31/20 22:37 Troponin T < 0.010 ng/mL (0.00-0.029) 08/01/20 14:09 Total Protein 6.7 g/dL (6.3-8.2) 07/31/20 22:37 Albumin 4.3 g/dL (3.9-5) 07/31/20 22:37 Albumin/Globulin Ratio 1.8 % 07/31/20 22:37 Triglycerides 99 mg/dL (2-149) 08/01/20 05:44 Cholesterol 139 mg/dL (50-199) 08/01/20 05:44 LDL Cholesterol Direct 71 mg/dL (50-130) 08/01/20 05:44 HDL Cholesterol 52 mg/dL (40-59) 08/01/20 05:44 Cholesterol/HDL Ratio 2.67 % 08/01/20 05:44 Oglesby/IV: Voiding Method Urinal Active Medications - Current Medications Current Medications: Generic Name Dose Route Start Last Admin Trade Name Freq PRN Reason Stop Dose Admin Acetaminophen 650 mg 08/01/20 03:54 Acetaminophen 325 Mg Tab PO Q4H PRN Pain MILD(1-3)/Fever >100.5/WOLF Aspirin 325 mg 08/02/20 10:00 08/03/20 09:46 Aspirin Ec 325 Mg Tab PO 325 mg QDAY CHUCKY Administration Heparin Sodium (Porcine) 5,000 unit 08/01/20 06:00 08/03/20 06:53 Heparin 5,000 Unit/1 Ml Vial SUB-Q 5,000 unit Q8HR CHUCKY Administration Magnesium Hydroxide 30 ml 08/01/20 03:54 Magnesium Hydroxide (Mom) Oral Liqd Udc PO Q4H PRN Constipation Morphine Sulfate 2 mg 08/01/20 03:54 08/01/20 23:15 Morphine 4 Mg/1 Ml Inj IV 2 mg Q5MIN PRN Administration Chest Pain Nitroglycerin 0.4 mg 08/01/20 03:54 08/01/20 16:20 Nitroglycerin 0.4 Mg Tab Subl SL 0.4 mg Q5M PRN Administration Chest Pain Ondansetron HCl 4 mg 08/01/20 03:54 08/02/20 10:46 Ondansetron 4 Mg/2 Ml Inj IV 4 mg Q8H PRN Administration Nausea And Vomiting Sodium Chloride 10 ml 08/01/20 10:00 08/03/20 09:47 Sodium Chloride 0.9% 10 Ml Flush Syringe IV 10 ml BID CHUCKY Administration Sodium Chloride 10 ml 08/01/20 03:54 Sodium Chloride 0.9% 10 Ml Flush Syringe IV PRN PRN LINE FLUSH Tramadol HCl 50 mg 08/01/20 03:54 Tramadol 50 Mg Tab PO Q6H PRN Pain, Moderate (4-6) Nutrition/Malnutrition Assess - Dietary Evaluation Nutrition/Malnutrition Findings: Nutrition Notes Start: 08/02/20 11:50 Freq: Status: Active Protocol: Document 08/02/20 11:50 (Rec: 08/02/20 11:52 [id number]) Nutrition Notes Need for Assessment generated from: Low BMI Initial or Follow up Brief Note Other Pertinent Diagnosis chest pain, seizure disorder, suicidal ideations Current Diet NPO Subjective/Other Information Screen for low BMI. Pt NPO and out of room for stress test at time of visit. Nutrition Intervention Follow-Up By: 08/03/20 Additional Comments FU for low BMI
--- NOTE | 2020-08-03 11:13 | Progress Note ---
Assessment and Plan - Patient Problems (1) Atypical chest pain Current Visit: Yes Status: Acute Plan to address problem: MPI negative for ischemia. Echo shows a normal left ventricular systolic function, ejection fraction 60-65% No further cardiac workup indicated. Conservative cardiac management. Subjective Date of service: 08/03/20 Interval history: No distress noted. Sitter is at the bedside. Awaiting transfer to inpatient psych. Objective Vital Signs Temp Pulse Resp BP Pulse Ox 08/03/20 09:11 97.7 F 99 H 22 120/69 97 08/03/20 04:03 84 98 08/03/20 04:02 98.1 F 81 18 121/72 97 08/03/20 00:00 82 08/02/20 23:22 97.8 F 86 18 120/76 97 08/02/20 22:00 18 08/02/20 20:48 97.6 F 88 18 119/78 97 08/02/20 16:37 98.4 F 96 H 18 97/65 97 08/02/20 16:00 69 - Physical Examination General: No Apparent Distress HEENT: Positive: PERRL Neck: Positive: neck supple Cardiac: Positive: Reg Rate and Rhythm Lungs: Positive: Normal Breath Sounds Neuro: Positive: Grossly Intact Extremities: Absent: edema
--- NOTE | 2020-08-03 11:22 | Consultation ---
History of Present Illness - Reason for Consult Consult date: 08/03/20 Reason for consult: SI - History of Present Psychiatric Illness Candido Alamo is a 50y/o male patient who was brought from [facility] for chest pain. The patient states he was admitted to [facility] for suicidal thoughts. He denies presently. He is calm and cooperative. He describes his mood as better. He says "I actually feel okay now." The patient denies hallucinations of any kind. He says he seen a psychiatrist many years ago. He did not know the exact number of years. He says he was diagnosed with PTSD, ADD, and bipolar. The patient says he's also been off his meds for years and have been fine with out them he says for the most part. He denies any illicit drug use, or alcohol. PAST PSYCHIATRIC HISTORY Diagnoses: Bipolar, PTSD, ADD Suicide attempts or Self-harm behavior: None reported Prior psychiatric hospitalizations: Denies Substance Abuse history: Denies Previous psychiatric medications tried: Denies Outpatient treatment: None reported PAST MEDICAL HISTORY: None reported Family Psychiatric History: None reported or documented SOCIAL HISTORY Marital Status: Single Living Arrangements: alone Employment Status: Employed Access to guns/weapons: None reported Education: high school History of Abuse: None reported Legal History: None reported REVIEW OF SYSTEMS Constitutional: Negative for weight loss ENT: Negative for stridor Respiratory: Negative for cough or hemoptysis All other systems reviewed and are negative MENTAL STATUS EXAMINATION General Appearance and Behavior: Age appropriate, good hygiene, wearing appro priate clothes, good eye contact, calm and cooperative polite with questioning. Cooperation: Participating/engaged Psychomotor Behavior: unremarkable and within normal limits Mood: better, okay Affect and affective range: congruent with mood Thought Process: Fluent/Logical Thought Content: Within reality Speech: Normal volume, Regular rate and rhythm, Intellectual Functioning: Average Suicidal Ideation: Denies Homicidal Ideation: Denies Impulse Control: Unimpaired Insight and Judgment: Normal insight and judgment Memory: Normal Attention: Normal Orientation: Alert, oriented Assessment (1) Hx of Bipolar Disorder Current Visit: Yes Status: Acute Treatment Plan May continue medication treatment at [facility] No scripts given Sitter: Defer to primary Medical: Per primary Disposition: Do not recommend acute psychiatric treatment at this time Will sign off. Thank you for this consult Case staffed with Dr. Beltran Medications and Allergies Allergies Allergy/AdvReac Type Severity Reaction Status Date / Time No Known Allergies Allergy Verified 08/01/20 04:06 Home Medications Medication Instructions Recorded Confirmed Last Taken Type Aspirin EC [Ecotrin] 325 mg PO QDAY tablet 08/02/20 Unknown Rx Active Meds: Active Medications Acetaminophen (Acetaminophen 325 Mg Tab) 650 mg PO Q4H PRN PRN Reason: Pain MILD(1-3)/Fever >100.5/WOLF Aspirin (Aspirin Ec 325 Mg Tab) 325 mg PO QDAY [facility] Last Admin: 08/03/20 09:46 Dose: 325 mg Documented by: Heparin Sodium (Porcine) (Heparin 5,000 Unit/1 Ml Vial) 5,000 unit SUB-Q Q8HR [facility] Last Admin: 08/03/20 06:53 Dose: 5,000 unit Documented by: Magnesium Hydroxide (Magnesium Hydroxide (Mom) Oral Liqd Udc) 30 ml PO Q4H PRN PRN Reason: Constipation Morphine Sulfate (Morphine 4 Mg/1 Ml Inj) 2 mg IV Q5MIN PRN PRN Reason: Chest Pain Last Admin: 08/01/20 23:15 Dose: 2 mg Documented by: Nitroglycerin (Nitroglycerin 0.4 Mg Tab Subl) 0.4 mg SL Q5M PRN PRN Reason: Chest Pain Last Admin: 08/01/20 16:20 Dose: 0.4 mg Documented by: Ondansetron HCl (Ondansetron 4 Mg/2 Ml Inj) 4 mg IV Q8H PRN PRN Reason: Nausea And Vomiting Last Admin: 08/02/20 10:46 Dose: 4 mg Documented by: Sodium Chloride (Sodium Chloride 0.9% 10 Ml Flush Syringe) 10 ml IV BID [facility] Last Admin: 08/03/20 09:47 Dose: 10 ml Documented by: Sodium Chloride (Sodium Chloride 0.9% 10 Ml Flush Syringe) 10 ml IV PRN PRN PRN Reason: LINE FLUSH Tramadol HCl (Tramadol 50 Mg Tab) 50 mg PO Q6H PRN PRN Reason: Pain, Moderate (4-6) Mental Status Exam - Vital signs Last Vital Signs Temp 97.7 F 08/03/20 09:11 Pulse 99 H 08/03/20 09:11 Resp 22 08/03/20 09:11 BP 120/69 08/03/20 09:11 Pulse Ox 97 08/03/20 09:11 Results Result Diagrams: 08/02/20 04:42 08/02/20 04:42 All other labs normal.
--- NOTE | 2020-08-05 11:32 | Treadmill Report ---
[facility] Test Date: 2020-08-02 Test Time: 09:00:10 Pat Name: QUANG DELAROSA Department: Room: A470 1 Gender: M Pie Cutter: Gabriela Max : 1970 Requested By: MORIS SALAS Order Number: [id number] Reading MD: Gerhard Rashid Interpretive Statements See dictated report Electronically Signed On 08-05-2020 11:32:34 EDT by Gerhard Rashid
--- NOTE | 2020-08-05 11:35 | Electrocardiograph Report ---
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
== END 2020-08-03 14:57 | disposition home or self-care (01) ==
LOC: ED 21:25 → 4A 08-01 03:40
PROVIDERS: ADMIT Internal Medicine Geriatric Medicine; ATTEND Hospitalist
DX: R07.89 Other chest pain (principal); R56.9 Unspecified convulsions; R45.851 Suicidal ideations; F17.210 Nicotine dependence, cigarettes, uncomplicated; Z98.890 Other specified postprocedural states; Z86.73 Personal history of transient ischemic attack (TIA), and cerebral infarction without residual deficits; Z79.899 Other long term (current) drug therapy; Z79.82 Long term (current) use of aspirin
CPT/HCPCS: 36415; 71046; 78452; 80048; 80053; 80061; 84484; 85025; 85610; 93005; 93017; 93306; 96372; 96374; 96375; 96376; 99285; 99406; A9502; G0378; J1644; J2270; J2405; J2785; J3010